=== PATIENT | female | born 1960 | race American Indian/Alaskan Native ===

== ENCOUNTER 2018-04-03 12:54 | Outpatient (CLI) | payer OTHER ==
--- NOTE | 2018-04-03 15:47 | Mammography Report ---
BILATERAL DIGITAL SCREENING MAMMOGRAM with CAD: 04/03/18 12:54:00 CLINICAL: Routine screening. COMPARISON:11/18/16 FINDINGS: The breasts are almost entirely fatty. No mass, architectural distortion or suspicious calcifications. IMPRESSION: No mammographic evidence of malignancy. BI-RADS CATEGORY: 1 - - Negative RECOMMENDATION: Routine mammographic screening in one year. COMMENT: Patient follow-up letters are generated by our [employer] application.
== END 2018-04-03 12:55 | disposition home or self-care (01) ==
LOC: MAMMO 12:54
PROVIDERS: ATTEND Family Medicine
DX: Z12.31 Encounter for screening mammogram for malignant neoplasm of breast (principal)
CPT/HCPCS: 77067

== ENCOUNTER 2018-06-08 10:53 | Day surgery (SDC) | payer OTHER ==
[2018-06-08] MEDS ORDERED: NACL 0.9% 1000 ML 1,000 ML IV SCH (14:00)
[2018-06-08] MEDS ORDERED: HumuLIN R IV ONE (14:04)
[2018-06-08] MEDS ORDERED: WATER FOR IRRIG STERILE IR ONE (16:07)
--- NOTE | 2018-06-08 16:59 | Anesthesia Consultation ---
Anesthesia Consult and Med Hx Date of service: 06/08/18 - Airway Anesthetic Teeth Evaluation: Dentures (upper) ROM Head & Neck: Adequate Mental/Hyoid Distance: Adequate Mallampati Class: Class I Intubation Access Assessment: Good - Pulmonary Exam CTA: Yes - Cardiac Exam Cardiac Exam: RRR - Pre-Operative Health Status ASA Pre-Surgery Classification: ASA2 Proposed Anesthetic Plan: MAC - Endocrine Hx Non-Insulin Dependent Diabetes: Yes Hx Hypothyroidism: Yes
--- NOTE | 2018-06-08 17:00 | Anesthesia Day of Surgery ---
Anesthesia Day of Surgery - Day of Surgery Patient Examined: Yes Patient H&P Reviewed: Yes Patient is NPO: Yes
[2018-06-08] MEDS ORDERED: DIPRIVAN 10 MG/ML IV ONE ×2 (17:03)
--- NOTE | 2018-06-08 17:28 | Operative Report ---
Operative Report Operative Report: Date of procedure: 06/08/2018 Procedure: Colonoscopy with Hot biopsy polypectomy and polyp ablation Transverse colon. Attending physician: Rene Montilla MD [employer] Developer: Rene Montilla MD Indication: Patient is a 57-year-old female who presents for colorectal cancer screening. This colonoscopy serves to evaluate patient so that treatment may be directed based on the findings. Consent: Informed consent was obtained after advising the patient and family regarding nature of this procedure, its indications, potential benefits as well as possible complications including but not limited to bleeding perforation and adverse reaction to medication, infection as well as other cardiopulmonary complications. An informed written and verbal consent was then obtained after due opportunity was provided for questions and answers. Monitoring: Patient was monitored continuously with pulse oximetry and electrocardiographic recordings as well as blood pressure recordings. Vital signs remained stable throughout this procedure with no untoward events. Preoperative assessment: Patient was assessed immediately prior to this procedure for capacity to tolerate monitored anesthesia care and moderate sedation as well as general anesthesia. Patient's ASA classification is 2, Mallampati class is 2, Hyomental distance is 3. Instrument: [employer] video colonoscope. Medications: Propofol given intravenously in divided doses. For details please refer to anesthesia records. Description of procedure: Patient was placed in the left lateral decubitus position after achieving sedation, a digital rectal examination was performed following which the colonoscope was introduced into the anal verge and advanced to the cecum which was identified by the cecal valve, the appendiceal orifice, as well as by the cecal strap and direct transillumination. The colonoscope was subsequently withdrawn with careful inspection of all mucosal surfaces. Patient tolerated this procedure well and was subsequently taken to the recovery room. The following findings were noted. Findings: The preparation for the colonoscopy was fair. The cecum was normal. The ascending colon was normal. In the transverse colon, patient had a flat 6-8 mm polyp which was removed by hot biopsy polypectomy and ablation. There was moderate diverticula in the sigmoid colon and descending colon. . On the retroflexed view of the anal verge, patient had internal hemorrhoids. Impression: Transverse colon flat 6-8 mm polyp status post hot biopsy polypectomy and ablation. Diverticular disease of the colon. Internal hemorrhoids. Plan: Follow pathology report. High-fiber diet. Repeat colonoscopy in 5 years.
--- NOTE | 2018-06-08 17:29 | Discharge Summary ---
Short Stay Discharge Plan Activity: advance as tolerated Weight Bearing Status: Weight Bear as Tolerated Diet: regular Follow up with: SHEEBA LEE MD [Primary Care Provider] - 7 Days
[2018-06-08 18:00] VITALS: BP 108/68
== END 2018-06-08 10:54 | disposition home or self-care (01) ==
LOC: GIO 10:53
PROVIDERS: ATTEND Internal Medicine Gastroenterology
DX: Z12.11 Encounter for screening for malignant neoplasm of colon (principal); K63.5 Polyp of colon; K64.8 Other hemorrhoids; E11.9 Type 2 diabetes mellitus without complications; E03.9 Hypothyroidism, unspecified; G47.30 Sleep apnea, unspecified; Z79.899 Other long term (current) drug therapy; Z79.84 Long term (current) use of oral hypoglycemic drugs; Z88.0 Allergy status to penicillin; Z88.8 Allergy status to other drugs, medicaments and biological substances; Z80.0 Family history of malignant neoplasm of digestive organs
CPT/HCPCS: 45384; 82962; 88305; 96374; J2704; J7030; J1815

== ENCOUNTER 2019-04-06 09:32 | Outpatient (CLI) | payer OTHER ==
--- NOTE | 2019-04-09 09:09 | Mammography Report ---
BILATERAL DIGITAL SCREENING MAMMOGRAM WITH CAD INDICATION: Routine screening mammography. TECHNIQUE: Digital bilateral 2D mammography was obtained in the craniocaudal and mediolateral obliq ue projections. This examination was interpreted with the benefit of Computer-Aided Detection analysi s. COMPARISON: 04/03/2018 FINDINGS: Breast Density: The breasts are almost entirely fatty. No mass, architectural distortion or suspicious calcifications. IMPRESSION:No mammographic evidence of malignancy. BI-RADS Category 1: Negative. No mammographic evidence of malignancy. Recommend routine screening m ammography in one year. A "normal" or negative report should not discourage follow up or biopsy of a clinically significant f inding. A written summary of these findings will be mailed to the patient. The patient will be entered into a mammography reporting system which will generate a reminder letter for the patient's next appointmen t at the appropriate interval. The [employer] recommends yearly mammograms starting at age 40 and continuing as l arcelia as a woman is in good health. Breast MRI is recommended for women with an approximate 20-25% or greater lifetime risk of breast cancer, including women with a strong family history of breast or ova pawan cancer or who have been treated for Hodgkin's disease. Signer Name: Sukumar Finley MD Signed: 04/09/2019 9:05 AM Workstation Name: [id number]
== END 2019-04-06 09:33 | disposition home or self-care (01) ==
LOC: MAMMO 09:32
PROVIDERS: ATTEND Internal Medicine
DX: Z12.31 Encounter for screening mammogram for malignant neoplasm of breast (principal); E11.9 Type 2 diabetes mellitus without complications; E03.9 Hypothyroidism, unspecified
CPT/HCPCS: 77067

== ENCOUNTER 2021-11-26 10:49 | Outpatient (CLI) | payer BC | END 2021-11-26 10:50 | disposition home or self-care (01) | LOC: SPVWC 10:49 | PROVIDERS: ATTEND Obstetrics & Gynecology | DX: Z12.31 Encounter for screening mammogram for malignant neoplasm of breast (principal) | CPT/HCPCS: 77063; 77067 ==